=== PATIENT | female | born 2000 | race Caucasian/White ===

== ENCOUNTER 2020-06-14 20:02 | Emergency (ER) | payer OTHER ==
[~2020-06-14] VITALS: Ht 160 cm; Wt 77.3 kg
[2020-06-14 21:57] VITALS: BP 128/77
== END 2020-06-14 22:44 | disposition home or self-care (01) ==
LOC: EMS 20:02
DX: J02.9 Acute pharyngitis, unspecified (principal); Z20.822 Contact with and (suspected) exposure to COVID-19
CPT/HCPCS: 99283; U0003